=== PATIENT | male | born 1985 | race Caucasian/White ===

== ENCOUNTER 2016-11-15 07:39 | Emergency (ER) | payer OTHER ==
[2016-11-15 08:01] VITALS: TEMP 98; BMI 33.0
[2016-11-15] MEDS ORDERED: DIPHTH,PERTUSS(ACELL),TET 0.5 ML DISP.SYRIN IM ONE (08:12)
--- NOTE | 2016-11-15 08:12 | PDOC ---
History of Present Illness - History of Present Illness Initial Comments: 11/15/16 08:17 The patient is a 31-year-old man, accompanied by significant other, with no significant past medical history who presents to the emergency department via walk-in for further evaluation of a sustained right index finger laceration. As per patient, he was taking out the garbage, approximately half an hour ago, when he caught his finger on glass. Patient is able to extend, flex and move his finger laterally. He does not report any numbness, tingling or weakness sensations on the affected site. Tetanus vaccination is not up to date. No recent fevers, chills, chest pain, cough, shortness of breath, abdominal pain , nausea, vomiting, diarrhea. Allergies: None Known Past Surgical History: None reported Social History: Tobacco use. No ETOH or recreational drug use. Primary Care Physician: Dr. Bre Rosenberg [phone] <Rafaela Pak - Last Filed: 11/15/16 08:56> - General History Source: Patient, Old Records Exam Limitations: No Limitations <Anamika Cano - Last Filed: 11/15/16 09:56> - General Chief Complaint: Laceration Stated Complaint: LACERATION Time Seen by Provider: 11/15/16 08:04 Past History <Rafaela Pak - Last Filed: 11/15/16 08:56> - Past Medical History Suicide Attempt (Hx): No - Psycho/Social/Smoking Cessation Hx Anxiety: No Suicidal Ideation: No Smoking Status: Yes Smoking History: Never smoked Number of Cigarettes Smoked Daily: 0 Information on smoking cessation initiated: No Hx Alcohol Use: No <Anamika Cano - Last Filed: 11/15/16 09:56> - Past Medical History Allergies/Adverse Reactions: Allergies Allergy/AdvReac Type Severity Reaction Status Date / Time No Known Allergies Allergy Verified 11/15/16 07:52 Home Medications: Ambulatory Orders NK [No Known Home Medication] 11/15/16 Review of Systems - Review of Systems Able to Perform ROS?: Yes Comments:: 11/15/16 08:17 CONSTITUTIONAL: Absent: fever, no chills, no fatigue EYES: Absent: visual changes ENT: Absent: ear pain, no sore throat CARDIOVASCULAR: Absent: chest pain, no palpitations RESPIRATORY: Absent: cough, no SOB GI: Absent: abdominal pain, no nausea, no vomiting, no constipation, no diarrhea GENITOURINARY: Absent: dysuria, no frequency, no hematuria MUSCULOSKELETAL: Absent: back pain, no arthralgia, no myalgia SKIN: Present: Laceration Absent: rash NEURO: Absent: headache <Rafaela Pak - Last Filed: 11/15/16 08:56> *Physical Exam - Vital Signs Last Vital Signs Temp Pulse Resp BP Pulse Ox 98 F 78 18 117/78 100 11/15/16 07:45 11/15/16 07:45 11/15/16 07:45 11/15/16 07:45 11/15/16 07:45 - Physical Exam Comments: 11/15/16 08:17 GENERAL: Well-appearing, well-nourished. No apparent distress. HEENT: Normocephalic, atraumatic. PERRL, EOM intact. CARDIOVASCULAR: Normal S1, S2. Regular rate and rhythm. PULMONARY: Clear to auscultation bilaterally. ABDOMEN: Soft, non-distended, non-tender. EXTREMITIES: Normal ROM in all four extremities. No gross deformities. SKIN: There is an approximately 1 centimeter laceration on the dorsum of the 2nd digit that is between the DIP and PIP joint. Neurovascularly intact. Flexor and extension tenders appear intact. No rash NEUROLOGICAL: No focal neurological deficits. <Rafaela Pak - Last Filed: 11/15/16 08:56> - Vital Signs Last Vital Signs Temp Pulse Resp BP Pulse Ox 98 F 78 18 117/78 100 11/15/16 07:45 11/15/16 07:45 11/15/16 07:45 11/15/16 07:45 11/15/16 07:45 <Anamika Cano - Last Filed: 11/15/16 09:56> Procedures - Laceration/Wound Repair Right 2nd digit Wound Length: to 2.5 cm Wound Explored: clean Wound's Depth, Shape: superficial Irrigated w/ Saline: Yes Betadine Prep: Yes Anesthesia: 1% Lidocaine Amount of Anesthetic (ccs): 2 Wound Debrided: minimal Wound Repaired With: Sutures Suture Size/Type: 5:0 Number of Sutures: 5 Layer Closure: No Sterile Dressing Applied: Yes Splint Applied: Yes Sling Applied: No <Anamika Cano - Last Filed: 11/15/16 09:56> ED Treatment Course - RADIOLOGY Radiograph Interpretation: 11/15/16 08:56 EXAM: RAD/HAND- RIGHT IMPRESSION: Right hand: Second digit last Images of the right hand reveal no sign of fracture, subluxation or bone destruction. There is no sign of a radiopaque foreign body. Soft tissue air is not appreciated. There may be a dorsal second digit soft tissue injury by the PIP joint. If symptoms persist, further imaging may be of help. <Rafaela Pak - Last Filed: 11/15/16 08:56> Medical Decision Making - Medical Decision Making 11/15/16 08:20 31-year-old male with isolated laceration to his right index finger with no apparent tendon injury and neurovascularly intact. Plan: 1. Plain films to rule out fracture or foreign body 2. Tetanus booster 3. Laceration repair (see procedure note) 4. Discharge home with wound care instructions 5. Suture removal in 7-10 days 6. Return to the emergency department if the wound appears red, swollen, purulent drainage or any other symptoms <Anamika Cano - Last Filed: 11/15/16 09:56> *DC/Admit/Observation/Transfer - Attestations Scribe Attestion: 11/15/16 08:18 Documentation prepared by Rafaela Pak, acting as medical leader for Anamika Cano MD. <Rafaela Pak - Last Filed: 11/15/16 08:56> - Discharge Dispostion Admit: No - Attestations Physician Attestion: 11/15/16 08:22 I, Dr. Anamika Cano, attest that the scribes documentation that appears above has been prepared under my direction and personally reviewed by me in its entirety. I confirmed that the note above accurately reflects all work, treatment, procedures, and medical decision-making performed by me. <Anamika Cano - Last Filed: 11/15/16 09:56> Diagnosis at time of Disposition: Laceration of right index finger w/o foreign body w/o damage to nail - Discharge Dispostion Disposition: HOME Condition at time of disposition: Stable - Referrals Referrals: Bre Rosenberg MD [Primary Care Provider] -
[2016-11-15] MEDS ORDERED: LIDOCAINE HCL 2% (20ML MULTI-DOSE VIAL) NR ONE (08:39)
[2016-11-15 10:25] VITALS: BP 118/75; PULSE 81
== END 2016-11-15 10:29 | disposition home or self-care (01) ==
LOC: JER 07:39
PROC: 0HQFXZZ Repair Right Hand Skin, External Approach (ICD-10-PCS; principal; 2016-11-15)
PROC: 3E0234Z Introduction of Serum, Toxoid and Vaccine into Muscle, Percutaneous Approach (ICD-10-PCS; 2016-11-15)
DX: S61.210A Laceration without foreign body of right index finger without damage to nail, initial encounter (principal); W25.XXXA Contact with sharp glass, initial encounter; Y93.E9 Activity, other interior property and clothing maintenance; Y92.038 Other place in apartment as the place of occurrence of the external cause
CPT/HCPCS: 12001-25; 73130-TC-RT; 90471; 90715; 99282-25

== ENCOUNTER 2020-10-13 10:36 | Emergency (ER) | payer OTHER | END 2020-10-13 12:28 | disposition home or self-care (01) | LOC: JVIRT 10:36 | DX: Z11.59 Encounter for screening for other viral diseases (principal) | CPT/HCPCS: C9803; G2251-GT; Q3014-GT; U0003 ==

== ENCOUNTER 2021-10-09 09:08 | Emergency (ER) | payer OTHER ==
[2021-10-09 10:11] VITALS: BP 110/66; PULSE 88; TEMP 100.8; BMI 35.9
== END 2021-10-09 10:45 | disposition home or self-care (01) ==
LOC: FER 09:08
DX: R50.9 Fever, unspecified (principal); Z11.52 Encounter for screening for COVID-19
CPT/HCPCS: 99283-25; C9803; U0003; U0005